=== PATIENT | male | born 1940 | race Caucasian/White ===

== ENCOUNTER → 2019-06-29 | Outpatient (CLI) | payer MEDICARE ==
[~2019-06-29] MED LIST: REGADENOSON 0.4 MG/5 ML SYR IV ONE
--- NOTE | 2019-06-29 18:56 | Myoview Stress Test ---
DATE OF STUDY: 06/29/2019 09:07:00 Stress Test - Treadmill ONLY STRESS SUMMARY: The patient underwent pharmacologic stress testing utilizing the usual protocol for Lexiscan. Baseline heart rate was 67 beats per minute and increased to a maximum heart rate of 86 beats per minute. Resting blood pressure was 129/69 and remained stable throughout the stress protocol. The patient was in no cardiac symptoms throughout the stress protocol. ELECTROCARDIOGRAPHIC STRESS SUMMARY: Baseline 12-lead electrocardiogram showed normal sinus rhythm with nonspecific ST-T wave abnormalities. Throughout the stress protocol, the patient had elicited premature ventricular complexes. There was no evidence of ST changes throughout the stress protocol. MYOCARDIAL PERFUSION IMAGES: The patient received technetium-99m tetrofosmin with 11 mCi at rest and 32.2 mCi at stress. The perfusion images show a moderate-sized fixed defect in the inferior wall that improves with stress images. Gated images reveal left ventricular ejection fraction of 61%. CONCLUSIONS: 1. Normal clinical, hemodynamic, and electrocardiographic Lexiscan stress test. 2. Premature ventricular complexes noted throughout the stress protocol. 3. Myocardial perfusion images revealed moderate-size inferior attenuation artifact, however, cannot rule out nontransmural scar. 4. Normal left ventricular function with an estimated ejection fraction of 61%. DO KRYSTAL Gilmore/TOMIL /[id number]
== END ==
LOC: NM 08:57
PROVIDERS: ATTEND Internal Medicine
DX: I25.10 Atherosclerotic heart disease of native coronary artery without angina pectoris (principal); R07.9 Chest pain, unspecified
CPT/HCPCS: 78452; 93017; A9502; J2785

== ENCOUNTER → 2019-07-17 | Day surgery (SDC) | payer MEDICARE ==
[2019-07-12 10:04] LABS: BASOPHILS # (AUTO) 0.1 (0.0-0.1); BASOPHILS % 0.5 % (0.0-1.0); EOSINOPHILS % 0.3 % (0.0-6.0); HEMATOCRIT 41.4 % (38.2-49.6); HEMOGLOBIN 13.8 g/dL (14.0-18.0); LYMPHOCYTES # (AUTO) 2.6 (1.0-3.2); LYMPHOCYTES % 24.1 % (18.0-39.1); MEAN CORPUSCULAR HEMOGLOBIN 30.8 pg (28-32); MEAN CORPUSCULAR HGB CONC 33.3 g/dL (31-35); MEAN CORPUSCULAR VOLUME 92.4 fL (81-99); MONOCYTES # (AUTO) 0.7 (0.2-0.8); MONOCYTES % 6.3 % (4.4-11.3); NEUTROPHILS # (AUTO) 7.5 (2.1-6.9); NEUTROPHILS % 68.5 % (38.7-80.0); PLATELET COUNT 294 x10e3/uL (140-360); RED BLOOD COUNT 4.48 x10e6/uL (4.3-5.7); RED CELL DISTRIBUTION WIDTH 13.9 % (11.7-14.4)
--- NOTE | 2019-07-12 10:12 | Diagnostic Imaging Report ---
EXAMINATION: CHEST 2 VIEWS INDICATION: ^PREOP ^[id number] ^[id number] COMPARISON: None FINDINGS: PA and lateral views TUBES and LINES: None. LUNGS: Linear consolidation of the lung bases, right greater than left, likely atelectasis and/or scarring. Small left apical calcified granuloma. No concerning mass or consolidation. PLEURA: No pleural effusion or pneumothorax. HEART AND MEDIASTINUM: Normal heart size. Normal pulmonary vasculature. Tortuous and ectatic thoracic aorta. BONES AND SOFT TISSUES: No acute osseous lesion. Sternotomy wires and mediastinal surgical clips. UPPER ABDOMEN: No free air under the diaphragm. Elevation of the right hemidiaphragm. IMPRESSION: 1. Bibasilar atelectasis and/or scarring. No acute thoracic abnormality. 2. Nonspecific elevation of the right hemidiaphragm. Signed by: Yuri Goldman MD on 07/12/2019 10:09 AM
[~2019-07-17] MED LIST changes: +ACETAMINOPHEN 1000 MG/100 ML IV ONE; +ASPIRIN81 MG PO; +CEFAZOLIN SOD 1 GM/NS 50ML 50 ML IV ONE; +CRESTOR10 MG PO; +DESFLURANE 240 ML BTL INH ONE; +FENTANYL CITRATE/PF 100MCG/2 ML INJ ONE; +GLYCOPYRROLATE INJ 0.2 MG/ML VIAL ONE; +LIDOCAINE 1% W/EPINEPHRINE 20 ML VIAL ONE; +LIDOCAINE HCL 2% LOCAL INJ 5 ML SDV VIAL INJ ONE; +MUPIROCIN 2% OINT 22 GM TUBE ONE; +NEOSTIGMINE 1 MG/ML 10ML VIAL ONE; +ONDANSETRON HCL INJ 2MG/ML 2ML 2 MG/ML VIAL ONE; +PROPOFOL IV EMULSION 10 MG/ML 20 ML VIAL ONE; +RAMIPRIL5 MG PO; -REGADENOSON 0.4 MG/5 ML SYR IV ONE; +ROCURONIUM BROMIDE 10 MG/ML 5ML VIAL ONE; +ZETIA10 MG PO
--- OUTSIDE RECORDS SUMMARY | 2019-07-17 05:26 | XMS REPORT | Summary of Care ---
Author Author [facility] - Health Organization [facility] - Health Address Unknown Phone Unavailable Care Team Providers Care Commercial Baking Teacher Name Role Phone Aniya lOivera MD PCP Reason for Visit * Reason Comments New Patient scalp cancer * (Routine) Referred By Contact Referred To Contact Status Reason Specialty Diagnoses / Procedures Arjun Demarco [address] 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 Arjun Demarco - [facility] for pt asking who is PCP is for referral. P brandy CONSULT PLASTIC SURGERY NEW VISIT (FIRST TIME) Encounter Details Care Team Description Date Type Department Piotr Puga MD [address] [facility] [id number] [place] [address] Mohs defect of scalp (Primary Dx) 06/06/2019 Office Visit [facility] Health Plastic Surgery- [facility] [address] [facility] [address] [place] [address] Allergies No Known Allergiesdocumented as of this encounter (statuses as of 06/07/2019) Medications End Date Status Medication Sig Dispensed Refills Start Date Active ramipril 10 mg capsule Take 10 mg by 0 mouth daily. Active rosuvastatin 5 mg tablet Take 5 mg by 0 mouth daily. Active ezetimibe 10 mg tablet Take 10 mg by 0 mouth daily. Active aspirin (ASPIRIN LOW Take 81 mg by 0 DOSE) 81 mg EC tablet mouth daily. documented as of this encounter (statuses as of 06/07/2019) Active Problems Not on filedocumented as of this encounter (statuses as of 06/07/2019) Social History Date Tobacco Use Types Packs/Day Years Used Never Smoker Smokeless Tobacco: Never Used Drinks/Week oz/Week Comments Alcohol Use Not Currently Sex Assigned at Date Recorded Not on file Industry Job Start Date Occupation Not on file Not on file Not on file Travel End Travel History Travel Start No recent travel history available. documented as of this encounter Last Filed Vital Signs Reading Time Taken Comments Vital Sign 126/78 06/06/2019 3:18 PM THERAPEUTIC RIDING INSTRUCTOR Blood Pressure 85 06/06/2019 3:18 PM THERAPEUTIC RIDING INSTRUCTOR Pulse 37.4 C (99.3 F) 06/06/2019 3:18 PM THERAPEUTIC RIDING INSTRUCTOR Temperature 18 06/06/2019 3:18 PM THERAPEUTIC RIDING INSTRUCTOR Respiratory Rate 95% 06/06/2019 3:18 PM THERAPEUTIC RIDING INSTRUCTOR Oxygen Saturation - - Inhaled Oxygen Concentration 87.9 kg (193 lb 11.2 oz) 06/06/2019 3:18 PM THERAPEUTIC RIDING INSTRUCTOR Weight 180.3 cm (5' 11") 06/06/2019 3:18 PM THERAPEUTIC RIDING INSTRUCTOR Height 27.02 06/06/2019 3:18 PM THERAPEUTIC RIDING INSTRUCTOR Body Mass Index documented in this encounter Progress Notes * Jose Luis Bazan MD - 06/06/2019 2:45 PM THERAPEUTIC RIDING INSTRUCTOR PLASTIC SURGERY CLINIC NOTE NAME: Danny Santana Date of Service: 06/06/2019 CC: MOH's defect of scalp SUBJECT: Danny Santana is a 78 year old male who presents today with a MOH's defect of the scalp. 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 The MOH's surgeon attempted to close the scalp defect with a sma ll open area along the central aspect but following suture removal on 06/04/2019 the entire incision dehisced. Following the dehiscence, he has been applying Ne osporin to the open area and covering it with band aids. Dr. Demarco subsequently referred the patient for definitive closure. Denies any fevers, chills, nausea or vomiting. Of note, the patient currently takes ASA daily. CURRENT HOSPITAL MEDICATIONS Current Outpatient Medications on File Prior to Visit Medication Sig Dispense Refill aspirin (ASPIRIN LOW DOSE) 81 mg EC tablet Take 81 mg by mouth daily. ezetimibe 10 mg tablet Take 10 mg by mouth daily. ramipril 10 mg capsule Take 10 mg by mouth daily. rosuvastatin 5 mg tablet Take 5 mg by mouth daily. No current facility-administered medications on file prior to visit. HISTORY Past Surgical History: Procedure Laterality Date CORONARY ARTERY BYPASS GRAFT 2002 6 vessel bypass All other past surgical history non contributory to this encounter. Past Medical History: Diagnosis Date CAD (coronary artery disease) All other past medical history non contributory to this encounter. Family History Problem Relation Age of Onset Stroke Mother All other family history non contributory to this encounter. Social History Socioeconomic History Marital status: Spouse name: Not on file Number of children: Not on file Years of education: Not on file Highest education level: Not on file Occupational History Not on file Social Needs Financial resource strain: Not on file Food insecurity: Worry: Not on file Inability: Not on file Transportation needs: Medical: Not on file Non-medical: Not on file Tobacco Use Smoking status: Never Smoker Smokeless tobacco: Never Used Substance and Sexual Activity Alcohol use: Not on file Drug use: Not on file Sexual activity: Not on file Lifestyle Physical activity: Days per week: Not on file Minutes per session: Not on file Stress: Not on file Relationships Social connections: Talks on phone: Not on file Gets together: Not on file Attends evangelical service: Not on file Active member of club or organization: Not on file Attends meetings of clubs or organizations: Not on file Relationship status: Not on file Intimate partner violence: Fear of current or ex partner: Not on file Emotionally abused: Not on file Physically abused: Not on file Forced sexual activity: Not on file Other Topics Concern Not on file Social History Narrative Not on file All other social history non contributory to this encounter. REVIEW OF SYSTEMS Constitutional: Negative. Head: As per HPI, MOH's defect of scalp Eyes: Negative ENT: Negative Cardiovascular:Negative Respiratory: Negative Gastrointestinal: Negative Genitourinary: Negative Musculoskeletal: Negative Skin: Negative Neuro: Negative Endo: Negative Lymph: Negative Psych: Negative Allergies: No Known Allergies PHYSICAL EXAM (-)=Negative,(+)=Positive BP 126/78 | Pulse 85 | Temp 37.4 C (99.3 F) | Resp 18 | Ht 5' 11" (1.803 m) | Wt 193 lb 11.2 oz (87.9 kg) | SpO2 95% | BMI 27.02 kg/m Constitutional: no acute distress Eyes: vision intact, EOMI Ears: hearing intact, no trauma to external meatus Lymphatic: No palpable adenopathy Respiratory: No respiratory distress, breathing unlabored Cardio: Regular rate and rhythm Neurologic: Sensory Function: Within normal limits Psych: No evidence of depression or anxiety Musculoskeletal: Function: Within normal limits, no clubbing, cyanosis or edema Skin: No bruising, rashes or lesions noted Head: Open wound, 6 cm, vertex of the scalp, exposed cranium along the wound bed , surrounded by a crusting rim of fibrinous exudate and nonviable tissue. Surrou nding skin is erythematous, warm, crusting/flaking with serous drainage, non-TTP . LABORATORY/MICROBIOLOGY/PATHOLOGY No New Labs RADIOLOGY No New Imaging ASSESSMENT/PLAN Danny Santana is a 78 year old male with PMH as seen above who presents with a MOH's defect of the scalp. -Lengthy discussion with the patient and his daughter detailing the available hall rgical options, risks, benefits, indications, alternative treatment options, and expected. Specific surgical options discussed include a staged procedure (Integ ra, wound VAC placement followed by STSG), rotational flap (pinwheel, Yin-Mcfarland), and bipedicle advancement flap. The patient and his daughter had the opportunity to ask questions and have them answered to their satisfaction. -Based upon the appearance of the surrounding skin consistent with a contact tia matitis, the patient was instructed to discontinue applying Neosporin. -Apply Vaseline petroleum jelly TID to wound ensuring that the exposed bone is k ept moist to limit sclerosis. -PHI release forms filled out to obtain the pathology results from Dr. Dav michel the medical records/cardiac clearance from the Dr. Mateus Duncan (patient's PC P) -RTC in 1 week for further discussion regarding the patient's desired surgical o ption and to allow for adequate healing of the surrounding skin prior to any typ e of surgical intervention. -The patient was instructed to call or MyChart with any concerns or questions pr ior to the next clinic appointment ICD-10-CM ICD-9-CM 1. Mohs defect of scalp M95.2 738.19 There is no problem list on file for this patient. APEUTIC RIDING INSTRUCTOR * Marci Lovett MA - 06/06/2019 2:45 PM THERAPEUTIC RIDING INSTRUCTOR Danny Santana is a 78 year old male CONSULT TO SCALP CANCER HE IS ALERT AND AM BULATORY ACCOMPANIED BY HIS DAUGHTER APEUTIC RIDING INSTRUCTOR documented in this encounter Plan of Treatment Care Team Description Date Type Specialty Piotr Puga MD [id number] [place], [place] [id number] 06/13/2019 Office Visit Plastic Surgery Health Maintenance Due Date Last Done Comments DTaP,Tdap,and Td Vaccines 1951 (1 - Tdap) Zoster Recombinant 1990 Vaccine (SHINGRIX) (1 of 2) Medicare Wellness Visit 2005 PNEUMOCOCCAL VACCINES 65+ 2005 (1 of 2 - PCV13) INFLUENZA VACCINE (#1) 2019 documented as of this encounter Results Not on filedocumented in this encounter Visit Diagnoses Diagnosis Mohs defect of scalp - Primary Other specified acquired deformity of head documented in this encounter Insurance Type Payer Benefit Subscriber ID Effective Phone Address Plan / Dates Group Medicare Adv HMO CIGNA [employer] CIGNA [id number] 2019-P [facility] [facility] documented as of this encounter
--- OUTSIDE RECORDS SUMMARY | 2019-07-17 05:26 | XMS REPORT | Summary of Care ---
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 Arjun Demarco - [facility] for pt asking who is PCP is for referral. P brandy CONSULT PLASTIC SURGERY NEW VISIT (FIRST TIME) Encounter Details Care Team Description Date Type Department Piotr Puga MD [address] [facility] [id number] [place] [address] Mohs defect of scalp (Primary Dx) 06/06/2019 Office Visit [facility] Health Plastic Surgery- [facility] [address] [facility] [address] [place] [address] Allergies No Known Allergiesdocumented as of this encounter (statuses as of 06/15/2019) Medications End Date Status Medication Sig Dispensed [...] as of this encounter (statuses as of 06/15/2019) Active Problems No known active problemsdocumented as of this encounter (statuses as of 06/15/2019) Social History Date Tobacco Use Types Packs/Day [...] Comments Vital Sign 126/78 06/06/2019 3:18 PM HAND TOOL FILER Blood Pressure 85 06/06/2019 3:18 PM HAND TOOL FILER Pulse 37.4 C (99.3 F) 06/06/2019 3:18 PM HAND TOOL FILER Temperature 18 06/06/2019 3:18 PM HAND TOOL FILER Respiratory Rate 95% 06/06/2019 3:18 PM HAND TOOL FILER Oxygen Saturation - - Inhaled Oxygen Concentration 87.9 kg (193 lb 11.2 oz) 06/06/2019 3:18 PM HAND TOOL FILER Weight 180.3 cm (5' 11") 06/06/2019 3:18 PM HAND TOOL FILER Height 27.02 06/06/2019 3:18 PM HAND TOOL FILER Body Mass Index documented in this encounter Progress Notes * Piotr Puga MD - 06/06/2019 2:45 PM HAND TOOL FILER I personally examined the patient on 06/07/[address] wilson's resident note with the following addition(s): decision for surg. - needs to clear likely rash due to neosporin - will pre-d and post after rtc to ensure good skin . I actively participated in the decision-making process. Please see the resident's note for additional details. TOOL FILER * Jose Luis Wilson MD - 06/06/2019 2:45 PM HAND TOOL FILER PLASTIC SURGERY CLINIC NOTE NAME: Danny Santana [...] file Gets together: Not on file Attends mandaeism service: Not on file Active member of [...] problem list on file for this patient. TOOL FILER * Marci Lovett MA - 06/06/2019 2:45 PM HAND TOOL FILER Danny Santana is a 78 year old male CONSULT TO SCALP CANCER HE IS ALERT AND AM BULATORY ACCOMPANIED BY HIS DAUGHTER TOOL FILER documented in this encounter Plan of Treatment Health Maintenance Due Date Last Done Comments [...] / Dates Group Medicare Adv HMO CIGNA [employer] CIGNA [id number] 2019-P [facility] [place] documented as of this encounter
--- OUTSIDE RECORDS SUMMARY | 2019-07-17 05:26 | XMS REPORT | Summary of Care ---
Author Author [facility] - Health Organization [facility] - Health Address Unknown Phone Unavailable Care Team Providers Care Nuclear Station Operator Name Role Phone Aniya Olivera MD PCP Reason for Visit * Reason Comments Results Encounter Details Care Team Description Date Type Department Jose Luis Bazan MD [address] [place] [address] Results 07/09/2019 Telephone [facility] [address] [facility] [address] [place] [address] Allergies No Known Allergiesdocumented as of this encounter (statuses as of 07/09/2019) Medications End Date Status Medication Sig Dispensed [...] as of this encounter (statuses as of 07/09/2019) Active Problems No known active problemsdocumented as of this encounter (statuses as of 07/09/2019) Social History Date Tobacco Use Types Packs/Day [...] of this encounter Last Filed Vital Signs Not on filedocumented in this encounter Plan of Treatment Health Maintenance Due Date Last Done Comments DTaP,Tdap,and Td Vaccines 1951 (1 - Tdap) Zoster Recombinant 1990 Vaccine (SHINGRIX) (1 of 2) Medicare Wellness Visit 2005 PNEUMOCOCCAL VACCINES 65+ 2005 (1 of 2 - PCV13) INFLUENZA VACCINE (#1) 2019 documented as of this encounter Results Not on filedocumented in this encounter Insurance Type Payer Benefit Subscriber ID Effective Phone Address Plan / Dates Group Medicare Adv HMO [facility] [id number] 2019-P [facility] documented as of this encounter
--- OUTSIDE RECORDS SUMMARY | 2019-07-17 05:26 | XMS REPORT | Summary of Care ---
Author Author [facility] - Health Organization [facility] - Health Address Unknown Phone Unavailable Care Team Providers Care Electric Scoop Operator Name Role Phone Aniya Olivera MD PCP Reason for Visit * Reason Comments Notification Encounter Details Care Team Description Date Type Department Piotr Puga MD [address] [facility] [id number] [place] [address] Notification 06/14/2019 Telephone [facility] Plastic Surgery[address] [place] [address] Allergies No Known Allergiesdocumented as of [...] Plan / Dates Group Medicare Adv HMO [facility] Double the Donation [facility] [id number] 2019-P [facility] [place] documented as of this encounter
--- OUTSIDE RECORDS SUMMARY | 2019-07-17 05:26 | XMS REPORT ---
Author [facility] Address Unknown Phone Unavailable Care Team Providers Care Utility Tractor Operator Name Role Phone CONRAD BEYER Unavailable Unavailable Problems This patient has no known problems. Allergies, Adverse Reactions, Alerts This patient has no known allergies or adverse reactions. Medications This patient has no known medications. Results Test Description Test Time Test Comments Text Results Atomic Results Result Comments CHEST 2 VIEWS 2019-07-12 10:07:00 [place] [address] Patient Name: ROSE MCNEIL JR MR #: [id number] : 1940 Age/Sex: 79/M Req #: [id number] [facility] Physician: Ordered by: CONRAD BEYER MD Report #: [id number] Location: OR Room/Bed: Procedure: [id number] DX/CHEST 2 VIEWS Exam Date: 07/12/19 Exam Time: 56 REPORT STATUS: Signed EXAMINATION: CHEST 2 VIEWS INDICATION: PREOP [id number] COMPARISON: None FINDINGS: PA and lateral views TUBES and LINES: None. LUNGS: Linear consolidation of the lung bases, right greater than left, likely atelectasis and/or scarring. Small left apical calcified granuloma. No concerning mass or consolidation. PLEURA: No pleural effusion or pneumothorax. HEART AND MEDIASTINUM: Norm al heart size. Normal pulmonary vasculature. Tortuous and ectatic thoracic aorta. BONES AND SOFT TISSUES: No acute osseous lesion. Sternotomy wires and mediastinal surgical clips. UPPER ABDOMEN: No free air under the diaphragm. Elevation of the right hemidiaphragm. IMPRESSION: 1. Bibasilar atelectasis and/or scarring. No acute thoracic abnormality. 2. Nonspecific elevation of the right hemidiaphragm. Signed by: Tracie Marie MD on 07/12/2019 10:09 AM Dictated By: TRACIE MARIE MD 100 Transcribed By: A[place] on 07/12/19 100 COPY TO: CONRAD BEYER MD
--- OUTSIDE RECORDS SUMMARY | 2019-07-17 05:26 | XMS REPORT | Summary of Care ---
Author Author [facility] - Health Organization [facility] - Health Address Unknown Phone Unavailable Care Team Providers Care Data Control Clerk Supervisor Name Role Phone Aniya Olivera MD PCP Reason for Referral * (Routine) Referred By Contact Referred To Contact Status Reason Specialty Diagnoses / Procedures Piotr Puga MD [address] [address] New Request Neurology Diagnoses Memory difficulty P rocedures CONSULT NEUROLOGY Reason for Visit * Reason Comments Follow-up scalp wound pain of a 3 to his forehead he is accompanied by his daughter * (Routine) Referred By Contact Referred To Contact Status Reason Specialty Diagnoses / Procedures Arjun Demarco [address] [address] Piotr Puga MD [address] [address] Authorized [facility] AND Diagnoses 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 Arjun Demarco - [facility] for pt asking who is PCP is for referral. P rocedures CONSULT PLASTIC SURGERY NEW VISIT (FIRST TIME) Encounter Details Care Team Description Date Type Department Piotr Puga MD [address] [address] Mohs defect of scalp (Primary Dx); Memory difficulty 06/13/2019 Office Visit [facility] Health Plastic Surgery- [address] [place] [address] Allergies No Known Allergiesdocumented as of this encounter (statuses as of 06/13/2019) Medications End Date Status Medication Sig Dispensed [...] as of this encounter (statuses as of 06/13/2019) Active Problems No known active problemsdocumented as of this encounter (statuses as of 06/13/2019) Social History Date Tobacco Use Types Packs/Day [...] Signs Reading Time Taken Comments Vital Sign 120/74 06/13/2019 2:12 PM LABORER FILTER PLANT Blood Pressure 67 06/13/2019 2:12 PM LABORER FILTER PLANT Pulse 36.8 C (98.3 F) 06/13/2019 2:12 PM LABORER FILTER PLANT Temperature 18 06/13/2019 2:12 PM LABORER FILTER PLANT Respiratory Rate 94% 06/13/2019 2:12 PM LABORER FILTER PLANT Oxygen Saturation - - Inhaled Oxygen Concentration 87.5 kg (193 lb) 06/13/2019 2:12 PM LABORER FILTER PLANT Weight 180.3 cm (5' 11") 06/13/2019 2:12 PM LABORER FILTER PLANT Height 26.92 06/13/2019 2:12 PM LABORER FILTER PLANT Body Mass Index documented in this encounter Progress Notes * Siri Bauman RN - 06/13/2019 2:30 PM LABORER FILTER PLANT Consent witnessed by Gomez Bauman RN. Surgery to be scheduled @ [facility] once pre-d is approved. Patient will be c ontacted with dates. Verbal and printed instructions given. List of medication s to avoid prior to procedure explained. Verbalized understanding. Facility loca tion and telephone provided. RER FILTER PLANT * Jose Luis Bazan MD - 06/13/2019 2:30 PM LABORER FILTER PLANT PLASTIC SURGERY CLINIC NOTE NAME: Danny Santana Date of Service: 06/13/2019 CC: MOH's defect of scalp SUBJECT: Danny Santana is a 78 year old male who presents today for follow up of his MO H's defect of the scalp. 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 Demarco. The MOH's surgeon attempted to close the scalp def ect with a small open area along the central aspect but following suture removal on 06/04/2019 the entire incision dehisced. Following the dehiscence, he was ap plying Neosporin to the open area and covering it with band aids. At his initial clinic visit on 06/06/2019, the periwound and surrounding skin had the appearance of a contact dermatitis, most likely attributable to the neosporin. He reports compliance with applying vaseline to the open area. Denies any fevers, chills, nausea or vomiting. [...] HISTORY Past Surgical History: Procedure Laterality Date CHOLECYSTECTOMY CORONARY ARTERY BYPASS GRAFT 2002 6 vessel bypass All other past surgical history non contributory to this encounter. Past Medical History: Diagnosis Date CAD (coronary artery disease) Gout Hypercholesterolemia Hypertension All other past medical history non contributory to this encounter. Family History Problem Relation Age of Onset Stroke Mother Melanoma Father All other family history non contributory to [...] Substance and Sexual Activity Alcohol use: Not Currently Drug use: Never Sexual activity: Not on file Lifestyle Physical activity: Days per week: Not on file Minutes per session: Not on file Stress: Not on file Relationships Social connections: Talks on phone: Not on file Gets together: Not on file Attends moravian service: Not on file Active member of [...] No Known Allergies PHYSICAL EXAM (-)=Negative,(+)=Positive BP 120/74 | Pulse 67 | Temp 36.8 C (98.3 F) | Resp 18 | Ht 5' 11" (1.803 m) | Wt 193 lb (87.5 kg) | SpO2 94% | BMI 26.92 kg/m Constitutional: no acute distress Eyes: vision [...] surrounded by a crusting rim of fibrinous exudate. Anterior surrounding skin i s erythematous and TTP LABORATORY/MICROBIOLOGY/PATHOLOGY No New Labs RADIOLOGY No New Imaging ASSESSMENT/PLAN Danny Santana is a 78 year old male with PMH as seen above who presents with a MOH's defect of the scalp. The appearance of his wound has improved significant ly, most importantly, the surrounding skin. -Lengthy discussion with the patient and his daughter again detailing the availa ble surgical options, risks, benefits, indications, alternative treatment option s, and expected. We will plan for a bipedicle advancement flap with skin graftin g (full thickness vs. Split thickness depending on the size of the defect) of th e lateral defects. The patient and his daughter had the opportunity to ask quest ions and have them answered to their satisfaction. -Consent obtained in clinic. Operative date to be determined pending medical and cardiac clearance/optimization Informed consent discussed with the patient, including: condition, proposed care , treatments and services, alternative forms of treatment, and risks of no treat ment. Details discussed around the procedures to be used, and the risks and haz ards involved, potential benefits, and side effects of the patients proposed care, treatment, and services; the likelihood of the patient achieving his or he r goals; and any potential problems that might occur during recuperation. Reason able alternative also discussed with the patients proposed care, treatment, a nd services. The discussion encompasses risks, benefits, and side effects relat ed to the alternative and risks related to not receiving the proposed care, ishmael tment, and services. - [facility] email to determine if further clearance/optimization is necessary - Provided a letter to the patient to give to Dr. Mateus Duncan (patient's PCP) at his appointment for medical and cardiac clearance/optimization - Neurology referral placed for memory loss evaluation at the request of the rachell bonner's daughter - Instructed the patient to continue to apply vaseline to open wound TID - Patient will be contacted regarding OR date -The patient was instructed to call or MyChart with any concerns or questions pr ior to the next clinic appointment ICD-10-CM ICD-9-CM 1. Mohs defect of scalp M95.2 738.19 There is no problem list on file for this patient. RER FILTER PLANT * Marci Lovett MA - 06/13/2019 2:30 PM LABORER FILTER PLANT Danny Santana is a 78 year old male follow up to scalp wound he is alert and a mbulatory accompanied by daughter RER FILTER PLANT documented in this encounter Plan of Treatment [...] Primary Other specified acquired deformity of head Memory difficulty Memory loss documented in this encounter Insurance Type Payer Benefit Subscriber ID Effective Phone Address Plan / Dates Group Medicare [facility] [employer] [facility] [id number] 2019-P [employer] [facility] documented as of this encounter
--- OUTSIDE RECORDS SUMMARY | 2019-07-17 05:26 | XMS REPORT | Summary of Care ---
Author Author [facility] - Health Organization [facility] - Health Address Unknown Phone Unavailable Care Team Providers Care Garment Manufacturer Name Role Phone Aniya Olivera MD PCP Reason for Visit * Reason Comments Notification Encounter Details Care Team Description Date Type Department Piotr Puga MD 301 [facility] [id number] [place] [address] Notification 06/14/2019 Telephone [facility] Plastic Surgery[address] [place] [phone] Allergies No Known Allergiesdocumented as of [...] Plan / Dates Group Medicare Adv HMO [facility] [employer] [facility] [id number] 2019-P [facility] [place] documented as of this encounter
--- OUTSIDE RECORDS SUMMARY | 2019-07-17 05:26 | XMS REPORT | Summary of Care ---
Author Author [facility] - Health Organization [facility] - Health Address Unknown Phone Unavailable Care Team Providers Care Spike Machine Feeder Name Role Phone Aniya Olivera MD PCP Encounter Details Care Team Description Date Type Department Doctor Unassigned, [place] [address] [place] [address] 06/06/2019 Orders Only [facility] 301 [place] [address] Allergies Not on Filedocumented as of this encounter (statuses as of 06/06/2019) Medications Not on filedocumented as of this encounter (statuses as of 06/06/2019) Active Problems Not on filedocumented as of this encounter (statuses as of 06/06/2019) Social History Date Tobacco Use Types Packs/Day Years Used Never Assessed Sex Assigned at Date Recorded Not on file Industry Job Start Date Occupation Not on file Not on file Not on file Travel End Travel History Travel Start No recent travel history available. documented as of this encounter Last Filed Vital Signs Not on filedocumented in this encounter Plan of Treatment Care Team Description Date Type Specialty Piotr Puga MD 301 [facility] [id number] [place] [address] [phone] 06/06/2019 Office Visit Plastic Surgery Health Maintenance Due Date Last Done Comments DTaP,Tdap,and Td Vaccines 1951 (1 - Tdap) Zoster Recombinant 1990 Vaccine (SHINGRIX) (1 of 2) Medicare Wellness Visit 2005 PNEUMOCOCCAL VACCINES 65+ 2005 (1 of 2 - PCV13) INFLUENZA VACCINE (#1) 2019 documented as of this encounter Procedures Comments Procedure Name Priority Date/Time Associated Diagnosis EXTERNAL PROVIDER RECORDS Routine 06/06/2019 12:01 AM ACUTE CARE SURGEON documented in this encounter Results Not on filedocumented in this encounter Insurance Type Payer Benefit Subscriber ID Effective Phone Address Plan / Dates Group Medicare Adv HMO [facility] [place] [facility] [id number] 2019-P [facility] [place] documented as of this encounter
--- OUTSIDE RECORDS SUMMARY | 2019-07-17 05:26 | XMS REPORT | Summary of Care ---
Author Author [facility] - Health Organization [facility] - Health Address Unknown Phone Unavailable Care Team Providers Care Mis Director Name Role Phone Aniya Olivera MD PCP Encounter Details Care Team Description Date Type Department Doctor Unassigned, [place] [address] [place] [id number] 06/06/2018 Orders Only [facility] 301 [place] [address] Allergies No Known Allergiesdocumented as of this encounter (statuses as of 06/08/2019) Medications No known medicationsdocumented as of this encounter (statuses as of 06/08/2019) Active Problems Not on filedocumented as of this encounter (statuses as of 06/08/2019) Social History Date Tobacco Use Types Packs/Day [...] Date Type Specialty Piotr Puga MD 301 [facility] [id number] [place] [address] [phone] 06/13/2019 Office Visit Plastic Surgery Health Maintenance Due Date Last Done Comments DTaP,Tdap,and Td Vaccines 1951 (1 - Tdap) Zoster Recombinant 1990 Vaccine (SHINGRIX) (1 of 2) Medicare Wellness Visit 2005 PNEUMOCOCCAL VACCINES 65+ 2005 (1 of 2 - PCV13) INFLUENZA VACCINE (#1) 2019 documented as of this encounter Procedures Comments Procedure Name Priority Date/Time Associated Diagnosis AUTHORIZATION TO RELEASE Routine 06/06/2018 PHI TO [facility] 12:01 AM MEMS DEVICE SCIENTIST documented in this encounter Results Not on filedocumented in this encounter
--- OUTSIDE RECORDS SUMMARY | 2019-07-17 05:26 | XMS REPORT | Summary of Care ---
Author Author [facility] - Health Organization [facility] - Health Address Unknown Phone Unavailable Care Team Providers Care Kiln Tester Name Role Phone Aniya Olivera MD PCP Encounter Details Care Team Description Date Type Department Doctor Unassigned, [place] [address] [place] [address] 05/31/2018 Orders Only [facility] 301 [place] [address] Allergies No Known Allergiesdocumented as of this encounter (statuses as of 06/26/2019) Medications No known medicationsdocumented as of this encounter (statuses as of 06/26/2019) Active Problems No known active problemsdocumented as of this encounter (statuses as of 06/26/2019) Social History Date Tobacco Use Types Packs/Day [...] Date/Time Associated Diagnosis EXTERNAL PROVIDER RECORDS Routine 05/31/2018 12:01 AM DIGITAL MARKETING OFFICER documented in this encounter Results Not on filedocumented in this encounter
--- OUTSIDE RECORDS SUMMARY | 2019-07-17 05:26 | XMS REPORT | Summary of Care ---
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 Arjun Demarco - [facility] for pt asking who is PCP is for referral. P brandy CONSULT PLASTIC SURGERY NEW VISIT (FIRST TIME) Encounter Details Care Team Description Date Type Department Piotr Puga MD 301 [facility] [id number] [place] [address] Mohs defect of scalp (Primary Dx) 06/06/2019 Office Visit [facility] Health Plastic Surgery- [facility] [address] [facility] [address] [place] [address] Allergies No Known Allergiesdocumented as of this [...] Comments Vital Sign 126/78 06/06/2019 3:18 PM PROGRAM ARRANGER Blood Pressure 85 06/06/2019 3:18 PM PROGRAM ARRANGER Pulse 37.4 C (99.3 F) 06/06/2019 3:18 PM PROGRAM ARRANGER Temperature 18 06/06/2019 3:18 PM PROGRAM ARRANGER Respiratory Rate 95% 06/06/2019 3:18 PM PROGRAM ARRANGER Oxygen Saturation - - Inhaled Oxygen Concentration 87.9 kg (193 lb 11.2 oz) 06/06/2019 3:18 PM PROGRAM ARRANGER Weight 180.3 cm (5' 11") 06/06/2019 3:18 PM PROGRAM ARRANGER Height 27.02 06/06/2019 3:18 PM PROGRAM ARRANGER Body Mass Index documented in this encounter Progress Notes * Jose Luis Bazan MD - 06/06/2019 2:45 PM PROGRAM ARRANGER PLASTIC SURGERY CLINIC NOTE NAME: Danny Santana [...] file Gets together: Not on file Attends baptism service: Not on file Active member of [...] problem list on file for this patient. RAM ARRANGER * Marci Lovett MA - 06/06/2019 2:45 PM PROGRAM ARRANGER Danny Santana is a 78 year old male CONSULT TO SCALP CANCER HE IS ALERT AND AM BULATORY ACCOMPANIED BY HIS DAUGHTER RAM ARRANGER documented in this encounter Plan of Treatment Care Team Description Date Type Specialty Piotr Puga MD [id number] [place], [place] [address] 06/13/2019 Office Visit Plastic Surgery Health Maintenance [...] / Dates Group Medicare Adv HMO [employer] CIGNA [id number] 2019-P [employer] [facility] documented as of this encounter
--- OUTSIDE RECORDS SUMMARY | 2019-07-17 05:26 | XMS REPORT | Summary of Care ---
Author Author [facility] - Health Organization [facility] - Health Address Unknown Phone Unavailable Care Team Providers Care Gamewell Operator Name Role Phone Aniya Olivera MD PCP Reason for Referral * (Routine) Referred By Contact Referred To Contact Status Reason Specialty Diagnoses / Procedures Piotr Puga MD [address] [address] New Request Neurology Diagnoses Memory difficulty P rocedures CONSULT NEUROLOGY Reason for Visit * Reason Comments Follow-up scalp wound pain of a 3 to his forehead he is accompanied by his daughter * (Routine) Referred By Contact Referred To Contact Status Reason Specialty Diagnoses / Procedures Arjun Demarco [address] [address] Piotr Puga MD [address] [address] Authorized MARYSOL-PLASTIC AND Diagnoses 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 Arjun Demarco - [facility] for pt asking who is PCP is for referral. P rocedures CONSULT PLASTIC SURGERY NEW VISIT (FIRST TIME) Encounter Details Care Team Description Date Type Department Piotr Puga MD [address] [address] Mohs defect of scalp (Primary Dx); Memory difficulty 06/13/2019 Office Visit [facility] Health Plastic Surgery- [address] [place] [address] Allergies No Known Allergiesdocumented as of this [...] Comments Vital Sign 120/74 06/13/2019 2:12 PM INSPECTOR MACHINE CUT GLASS Blood Pressure 67 06/13/2019 2:12 PM INSPECTOR MACHINE CUT GLASS Pulse 36.8 C (98.3 F) 06/13/2019 2:12 PM INSPECTOR MACHINE CUT GLASS Temperature 18 06/13/2019 2:12 PM INSPECTOR MACHINE CUT GLASS Respiratory Rate 94% 06/13/2019 2:12 PM INSPECTOR MACHINE CUT GLASS Oxygen Saturation - - Inhaled Oxygen Concentration 87.5 kg (193 lb) 06/13/2019 2:12 PM INSPECTOR MACHINE CUT GLASS Weight 180.3 cm (5' 11") 06/13/2019 2:12 PM INSPECTOR MACHINE CUT GLASS Height 26.92 06/13/2019 2:12 PM INSPECTOR MACHINE CUT GLASS Body Mass Index documented in this encounter Progress Notes * Siri Bauman RN - 06/13/2019 2:30 PM INSPECTOR MACHINE CUT GLASS Consent witnessed by Gomez Bauman RN. Surgery to be scheduled @ [facility] once pre-d is approved. Patient will be c ontacted with dates. Verbal and printed instructions given. List of medication s to avoid prior to procedure explained. Verbalized understanding. Facility loca tion and telephone provided. ECTOR MACHINE CUT GLASS * Jose Luis Bazan MD - 06/13/2019 2:30 PM INSPECTOR MACHINE CUT GLASS PLASTIC SURGERY CLINIC NOTE NAME: Danny Santana [...] file Gets together: Not on file Attends anglican service: Not on file Active member of [...] proposed care, ishmael tment, and services. - [facility] email to determine if further [...] problem list on file for this patient. ECTOR MACHINE CUT GLASS * Marci Lovett MA - 06/13/2019 2:30 PM INSPECTOR MACHINE CUT GLASS Danny Santana is a 78 year old male follow up to scalp wound he is alert and a mbulatory accompanied by daughter ECTOR MACHINE CUT GLASS documented in this encounter Plan of Treatment [...] Plan / Dates Group [facility] [employer] [facility] [id number] 2019-P [facility] documented as of this encounter
[2019-07-17 12:15] VITALS: BP 96/65
--- NOTE | 2019-07-17 17:47 | Operative Report ---
DATE OF PROCEDURE: 07/17/2019 SURGEON: Piotr Parrish MD PREOPERATIVE DIAGNOSES: 1. Squamous cell carcinoma of scalp. 2. Mohs defect of scalp 40 cm2. 3. Questionable second-degree burn versus rash of scalp. POSTOPERATIVE DIAGNOSES: 1. Squamous cell carcinoma of scalp. 2. Mohs defect of scalp 40 cm2. 3. Questionable second-degree burn versus rash of scalp. PROCEDURES: 1. Bitemporal pedicle advancement flaps, 180 cm2. 2. Debridement of soft tissues and calvarium. ANESTHESIA: General. HISTORY: The patient is a 79-year-old male who back in March, underwent Mohs micrographic surgery for removal of a large squamous cell carcinoma on the scalp. This resulted in a defect, which was to be closed by Plastic Surgery back in March. The family states that the plastic surgeon that they saw was not in network and the surgery was unable to be scheduled. I saw the patient approximately two weeks ago for the 1st time in the office and discussed the risks, benefits, and alternatives to treatment to close this wound. This morning, the patient shows up for surgery and the scalp immediately around the area of the defect shows a partial-thickness epidermolysis with irritation and bleeding. The patient is unable to state how or when this occurred. The patient's family consisting of two daughters are unaware and there was concern about this recent change in exam. The risks and benefits of going forward with the procedure because of this unknown skin condition was discussed in detail and the decision was made to proceed with the procedure as planned. PROCEDURE IN DETAIL: The patient was marked preoperatively in the holding area. He was brought to the operating theater and after the induction of adequate general anesthesia, he was prepped and draped in a supine position and a time-out was performed. The procedure was 1st begun by sharply excising the wound edges to remove all the devitalized and colonized tissue. At this point, a bur is used to grind down the superficial portion of the outer cortex and remove all the desiccated bone that has accumulated since March. At this point bitemporal flaps were marked out. The width was no less than 6 cm. The pedicles were approximately 15 cm long. The skin flap is 90 cm2 or 180 cm2 for the total reconstruction. The proposed incision lines were then infiltrated with 1% Xylocaine with epinephrine. After waiting an appropriate amount of time for maximum vasoconstrictive effect, the incisions were made through the skin and subcutaneous tissue and bleeding was controlled using electrocautery. The incisions were taken down through the galea but not through the periosteum. The flaps were then dissected off the periosteum all the way to their bases. At this point, hemostasis was made absolute using the electrocautery. The flaps were then advanced towards the midline of the wound and they were secured in place temporarily using surgical clips. At this point from the bases of the incision towards the vertex of this scalp, 4-0 nylon sutures were placed in an interrupted horizontal mattress fashion to start closing the wounds. In the region of the central aspect of the wound where the skin flaps overlapped, the redundant skin and subcutaneous tissue was excised and then the remainder of the incision closed with 4-0 nylon in interrupted horizontal mattress fashion. At the completion of the reconstruction, the flaps appeared to be well vascularized. Bactroban ointment, Xeroform gauze, and a sterile dressing were applied to the calvarium. The estimated blood loss of procedure was approximately 100-125 mL. The patient was returned to recovery room in satisfactory condition and discharged with a postoperative instruction sheet as well as a followup appointment. MD KENDRA Leslie/RANDALL /[id number]
== END | disposition home or self-care (01) ==
LOC: OR 05:24
PROVIDERS: ATTEND Plastic Surgery
DX: Z48.3 Aftercare following surgery for neoplasm (principal); Z85.828 Personal history of other malignant neoplasm of skin; I10 Essential (primary) hypertension; H91.90 Unspecified hearing loss, unspecified ear; I25.810 Atherosclerosis of coronary artery bypass graft(s) without angina pectoris; I49.3 Ventricular premature depolarization; Z01.812 Encounter for preprocedural laboratory examination; Z01.818 Encounter for other preprocedural examination; Z79.82 Long term (current) use of aspirin; Z95.1 Presence of aortocoronary bypass graft
CPT/HCPCS: 14301; 14302 ×4; 36415 ×2; 71046; 82948; 85025; J0131; J0690; J2001; J2405; J2704; J2710; J3010